=== PATIENT | male | born 1930 | race Caucasian/White ===

== ENCOUNTER 2016-10-21 18:14 | Emergency (ER) | payer MEDICARE, OTHER ==
[2016-10-21] MEDS ORDERED: 0.9 % SODIUM CHLORIDE 1000ML 500 ML IV SCH (18:30)
--- NOTE | 2016-10-21 18:30 | Emergency Department Record ---
History of Present Illness - General Chief complaint: Nausea, Vomiting, Diarrhea Stated complaint: DIARREAH Time Seen by Provider: 10/21/16 18:19 Source: Patient, Family Mode of Arrival: Ambulatory Limitations: Other (dementia) - History of Present Illness Initial comments: 86 yo male presents to ED with his son for evaluation of loose stools that began approximately 4:30 AM today. Son denies fevers, chills, vomiting or abdominal pain symptoms, however son reports that the patient was recently treated for UTI with Bactrim 2 weeks ago. Son was concerned about possible dehydration as the patient has been eating less for the past 1 month. Patient is currently being cared for by visiting physicians. MD complaint: Diarrhea Onset/Timin -: Days(s) Associated Abdominal Pain: No Consistency: Intermittent Improves with: None Worsens with: None Context: Recent anitbiotic use Associated Symptoms: Denies other symptoms - Related Data Home Medications Medication Instructions Recorded Confirmed Last Taken Atorvastatin Calcium [Lipitor] 10 mg PO QHS 11/19/13 05/19/15 05/18/15 Carbidopa/Levodopa [Sinemet 25-100 1 each PO QID 11/19/13 05/19/15 05/19/15 mg Tablet] Cholecalciferol [Vitamin D3] 1,000 unit PO DAILY 11/19/13 05/19/15 1 Day Ago ~02/01/15 Furosemide [Lasix] 20 mg PO DAILY 11/19/13 05/19/15 05/19/15 Rivastigmine Tartrate [Exelon] 6 mg PO BID 11/19/13 05/19/15 05/19/15 Sertraline HCl [Zoloft] 50 mg PO DAILY 11/19/13 05/19/15 05/19/15 Warfarin Sodium [Warfarin Sodium] 3 mg PO DAILY 11/19/13 05/19/15 05/18/15 Metoprolol Tartrate 50 mg PO DAILY tab 05/19/15 05/19/15 05/19/15 Previous Rx's Medication Instructions Recorded Amoxicillin/Potassium Clav 1 tab PO BID #19 tablet 10/22/16 [Augmentin 875Mg/125Mg] Allergies Allergy/AdvReac Type Severity Reaction Status Date / Time No Known Drug Allergies Allergy Verified 02/16/16 19:53 Review of Systems Constitutional: Denies: Chills, Fever, Malaise, Night sweats Eyes: Denies: Eye discharge, Eye pain ENT: Denies: Congestion, Ear pain, Epistaxis Respiratory: Denies: Cough, Dyspnea Cardiovascular: Denies: Chest pain, Dyspnea on exertion Endocrine: Denies: Fatigue, Heat or cold intolerance Gastrointestinal: Reports: Diarrhea. Denies: Abdominal pain, Vomiting Musculoskeletal: Denies: Arthralgia, Back pain Skin: Denies: Bruising, Change in color Neurological: Denies: Abnormal gait, Confusion, Headache Psychiatric: Denies: Anxiety Hematological/Lymphatic: Reports: Easy bleeding, Easy bruising. Denies: Anemia , Blood Clots Past Medical History - SOCIAL HISTORY Smoking Status: Never smoker - RESPIRATORY Hx Respiratory Disorders: No - CARDIOVASCULAR Hx Cardio Disorders: Yes Hx Irregular Heartbeat: Yes (atrial fibrillation) - NEURO Hx Neuro Disorders: Yes Hx Dementia: Yes Hx Parkinson's Disease: Yes - GI Hx GI Disorders: No - Hx Genitourinary Disorders: Yes Hx Bladder Problem: Yes (urinary incontinence) Hx Prostate Problems: Yes (History of prostate cancer) - ENDOCRINE Hx Endocrine Disorders: No - MUSCULOSKELETAL Hx Musculoskeletal Disorders: No - PSYCH Hx Psych Problems: No - HEMATOLOGY/ONCOLOGY Hx Hematology/Oncology Disorders: Yes Hx Cancer: Yes Hx Chemotherapy: No Hx Radiation Therapy: No Family Medical History Hx Cancer: Brother/Sister *Dementia Comment: aunt had demtial Hx Heart Disease: Father Physical Exam - General General Appearance: Alert, Cooperative, No acute distress, Other (at baseline mental status per son at the bedside) Limitations: Other (dementia) - Head Head exam: Atraumatic, Normocephalic, Normal inspection Head exam detail: negative: Abrasion, Contusion, Sethi's sign, General tenderness, Hematoma, Laceration - Eye Eye exam: Normal appearance. negative: Conjunctival injection, Periorbital swelling, Periorbital tenderness, Scleral icterus - ENT Ear exam: negative: Auricular hematoma, Auricular trauma Nasal Exam: negative: Active bleeding, Discharge, Dried blood, Foreign body Mouth exam: negative: Drooling, Laceration, Muffled voice, Tongue elevation - Neck Neck exam: Normal inspection. negative: Meningismus, Tenderness - Respiratory Respiratory exam: Normal lung sounds bilaterally. negative: Respiratory distress, Rhonchi, Stridor - Cardiovascular Cardiovascular Exam: Regular rate, Normal rhythm, Normal heart sounds - GI/Abdominal GI/Abdominal exam: Soft. negative: Distended, Rebound, Rigid, Tenderness - Rectal Rectal exam: Deferred - exam: Deferred - Extremities Extremities exam: negative: Calf tenderness, Pedal edema, Tenderness - Back Back exam: Denies: CVA tenderness (R), CVA tenderness (L) - Neurological Neurological exam: Alert. negative: Motor sensory deficit - Psychiatric Psychiatric exam: Normal affect, Normal mood - Skin Skin exam: Normal color. negative: Abrasion Type of lesion: negative: abrasion Course - Reevaluation(s) Reevaluation #1: 10/21/16 19:11 Labs reviewed, WBC 18.3, INR 2.46. Labs are otherwise grossly unremarkable for an acute process. CT Abdomen and Pelvis ordered to exclude colitis. Patient and family updated on results and plan of care at this time. Reevaluation #2: 10/21/16 22:44 CT Abdomen and Pelvis: Mild colitis of the descending/sigmoid colon. UA: No evidence for infection. Reevaluation #3: 10/22/16 00:46 C. diff negative. Patient and his son were updated on all results, given the patient's elevated WBC and CT findings, will treat for colitis of the descending /sigmoid region of the colon with Augmentin for 10 days as Cipro will interact with the patient's coumadin. Patient and family agree with the plan as discussed. 10/22/16 00:52 Medical Decision Making - Lab Data Result diagrams: 10/21/16 18:40 10/21/16 18:40 Disposition Disposition: Discharge Clinical Impression: Colitis Disposition: Home, Self-Care Condition: (2) Stable Instructions: Colitis (ED) Additional Instructions: Return to ED if your symptoms worsen or if you have any concerns. Cipro and Flagyl as directed. Follow-up with your family doctor in 1-3 days as directed. Prescriptions: Amoxicillin/Potassium Clav [Augmentin 875Mg/125Mg] 1 tab PO BID #19 tablet Forms: Patient Portal Access Time of Disposition: 00:52 Quality - Quality Measures Quality Measures: N/A - Blood Pressure Screening Blood Pressure Classification: Pre-Hypertensive BP Reading Systolic Measurement: 105 Diastolic Measurement: 88 Screening for High Blood Pressure: < Pre-Hypertensive BP, F/U Documented > [ [id number]] Pre-Hypertensive Follow-up Interventions: Referral to alternative/primary care provider.
[2016-10-21 18:48] LABS: BASO % 0.1 % (0-6); HEMATOCRIT 46.5 % (42.0-52.0); HEMOGLOBIN 15.1 gm/dl (14.0-18.0); LYMPH % 5.5 % (16-45); MEAN CELL VOLUME 97.3 fl (81-97); MEAN CORPUSCULAR HEMOGLOBIN 31.6 pg (27-33); MEAN CORPUSCULAR HGB CONC 32.5 g/dl (32-36); MEAN PLATELET VOLUME 10.8 fl (7.4-10.4); MONO % 6.9 % (0-9); PLATELET COUNT 171 K/uL (130-400); RED BLOOD COUNT 4.78 M/uL (4.40-5.70); RED CELL DISTRIBUTION WIDTH 14.5 % (11.5-14.5); WHITE BLOOD COUNT W/O DIFF 18.3 K/uL (4.2-12.2)
[2016-10-21 19:00] LABS: ALB/GLOB RATIO 1.2 (1.1-1.8); ALBUMIN 4.3 gm/dL (3.5-5.0); ALKALINE PHOSPHATASE 84 U/L (38-126); ALT/SGPT 34 U/L (21-72); ANION GAP 10.7 (7-16); AST/SGOT 26 U/L (17-59); BILIRUBIN,TOTAL 1.87 mg/dL (0.2-1.3); BLOOD UREA NITROGEN 31 mg/dL (9-20); CARBON DIOXIDE 27.3 mmol/L (22-30); EST GLOMERULAR FILTRATION RATE > 60 ml/min; GLUCOSE,RANDOM 134 mg/dL (70-110); INR 2.46; PROTHROMBIN TIME (PATIENT) 26.8 SECONDS (9.5-12.1)
[2016-10-21 22:06] LABS: URINE APPEARANCE CLEAR; URINE BILIRUBIN NEGATIVE (NEGATIVE); URINE BLOOD NEGATIVE (NEGATIVE); URINE COLOR YELLOW; URINE GLUCOSE (UA) NEGATIVE (NEGATIVE); URINE KETONE NEGATIVE (NEGATIVE); URINE LEUKOCYTE ESTERASE NEGATIVE (NEGATIVE); URINE NITRITE NEGATIVE (NEGATIVE); URINE PROTEIN NEGATIVE (NEGATIVE)
[2016-10-22] MEDS ORDERED: AMOXICILLIN/POTASSIUM CLAV 875MG/125MG TABLET PO ONE (00:52)
--- NOTE | 2016-10-24 07:46 | CT SCAN REPORT ---
DATE: 10/21/2016 at 2117 hours. EXAM: CT SCAN OF THE ABDOMEN AND PELVIS WITH CONTRAST. HISTORY: Loose stools and diarrhea for the past 12 hours. Decreased appetite for the past month. Abdominal pain. TECHNIQUE: Standard CT imaging of the abdomen and pelvis was performed with intravenous contrast. A total of 95 mL of Omnipaque 300 was administered. Oral contrast material was also utilized. COMPARISON: 06/28/2011. FINDINGS: There is focal atelectasis at the right lung base. The heart is enlarged. The liver, gallbladder, biliary tree, pancreas, spleen, and adrenal glands are normal. The kidneys are atrophic. There are tiny cortical cysts within the right kidney. There is no hydronephrosis. There is mild aneurysmal dilatation of the infrarenal abdominal aorta measuring up to 3.4 cm in diameter. There is no dissection. Extensive atherosclerotic calcifications are present within the abdominal aorta and iliac vessels. There is no retroperitoneal lymphadenopathy. The stomach and epigastrium appear normal. There is a large amount of stool within the rectum with associated bowel wall thickening. The appearance suggests fecal impaction and stercoral colitis. No discrete ulcer or perforation is identified. There are scattered diverticula within the colon with no evidence for acute diverticulitis. There is no pneumoperitoneum or ascites. The urinary bladder is normal. The patient is status post left hip arthroplasty. Degenerative changes are present within the spine. There are no acute osseous abnormalities. IMPRESSION: 1. A LARGE AMOUNT OF STOOL IS PRESENT WITHIN THE RECTUM WITH ASSOCIATED WALL THICKENING. THE APPEARANCE IS CONSISTENT WITH FECAL IMPACTION AND SUSPECTED DEVELOPING STERCORAL COLITIS. 2. MILD COLONIC DIVERTICULOSIS WITH NO DIVERTICULITIS. 3. 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 4. ATROPHIC KIDNEYS. 5. MILD RIGHT BASILAR ATELECTASIS. 6. ADDITIONAL CHRONIC FINDINGS ABOVE. JOB NUMBER: [id number] MTDD
== END 2016-10-22 01:12 | disposition home or self-care (01) ==
LOC: ER 18:14
DX: K52.89 Other specified noninfective gastroenteritis and colitis (principal); R11.2 Nausea with vomiting, unspecified; D72.829 Elevated white blood cell count, unspecified; I48.91 Unspecified atrial fibrillation; Z79.01 Long term (current) use of anticoagulants; Z85.46 Personal history of malignant neoplasm of prostate
CPT/HCPCS: 99284 ×2; 96360; 96361; 85610; 80053; 81003; 87493; 85027; 74177; Q9967; J7030